=== PATIENT | male | born 1940 | race Caucasian/White ===

== ENCOUNTER 2024-05-10 06:26 | Outpatient (CLI) | payer MEDICARE | END 2024-05-10 23:59 | disposition home or self-care (01) | LOC: MRI02 06:26 | PROVIDERS: ATTEND Nurse Practitioner Family | DX: I67.82 Cerebral ischemia (principal); G31.89 Other specified degenerative diseases of nervous system; G93.89 Other specified disorders of brain; J32.2 Chronic ethmoidal sinusitis; Z86.73 Personal history of transient ischemic attack (TIA), and cerebral infarction without residual deficits | CPT/HCPCS: 70551 ==

== ENCOUNTER 2024-06-22 10:55 | Day surgery (SDC) | payer MEDICARE ==
[2024-06-22] VITALS (9 sets, daily range): BP systolic 132–168; BP diastolic 81–118; PULSE 79–93; RESP 12–20; TEMP 97.3; O2SAT 95–99
[~2024-06-22] VITALS: Ht 175.3 cm; Wt 93.0 kg
[2024-06-22] MEDS: ceFAZolin 2gm in dextrose, iso 50 ML IV ONE (10:33)
[~2024-06-22 10:55] MED LIST: NO HOME MEDS; famotidine 20mg tablet PO ONE; ringers solution, lacted 1,000 ML IV SCH
[2024-06-22] MEDS ORDERED: BUPIVAcaine 2.5mg/ml inj 50ml vial (contains preservative) ONE (12:51)
[2024-06-22] MEDS ORDERED: sevoflurane 250ml liquid IH ONE (13:02)
[2024-06-22] MEDS ORDERED: midazolam 1 mg/ML 2ml injection ONE (13:08)
[2024-06-22] MEDS ORDERED: fentaNYL/PF 50MCG/1 ML 2ML syringe ONE (13:08)
[2024-06-22] MEDS ORDERED: propofol inj 20 ML IV ONE (13:09)
[2024-06-22] MEDS ORDERED: vancomycin 1,000mg inj ONE (13:21)
[2024-06-22] MEDS ORDERED: morphine 2 MG/ML inj. syringe IV PRN (13:40)
[2024-06-22] MEDS ORDERED: ringers solution, lacted 1,000 ML IV SCH (13:40)
[2024-06-22] MEDS ORDERED: meperidine/PF 25mg/ml syringe IV PRN ×3 (13:40)
[2024-06-22] MEDS ORDERED: morphine 4 MG/ML inj SYRINge IV PRN (13:40)
[2024-06-22] MEDS ORDERED: ondansetron/PF 4mg/2ml inj IV PRN (13:40)
[2024-06-22] MEDS ORDERED: proCHLORperazine 10 MG/2 ml inj IV PRN (13:40)
[2024-06-22] MEDS: BUPIVAcaine/PF 2.5 mg/ml (0.25%) 30ml vial IJ ONE (13:44)
== END 2024-06-22 14:55 | disposition home or self-care (01) ==
LOC: PAS 10:55
PROVIDERS: ATTEND Orthopaedic Surgery Orthopaedic Trauma
DX: M86.8X7 Other osteomyelitis, ankle and foot (principal); M19.90 Unspecified osteoarthritis, unspecified site; E11.9 Type 2 diabetes mellitus without complications; I48.20 Chronic atrial fibrillation, unspecified; M10.9 Gout, unspecified; F10.90 Alcohol use, unspecified, uncomplicated; F17.210 Nicotine dependence, cigarettes, uncomplicated; E66.9 Obesity, unspecified; Z68.31 Body mass index [BMI] 31.0-31.9, adult; Z86.73 Personal history of transient ischemic attack (TIA), and cerebral infarction without residual deficits; Z96.642 Presence of left artificial hip joint; Z98.890 Other specified postprocedural states; Z79.899 Other long term (current) drug therapy; Z88.8 Allergy status to other drugs, medicaments and biological substances
CPT/HCPCS: 28820; 82948; 87070; 87075; 87077; 87186; A4618; A6222; A6402; A6446; A6449; A7000; J0690; J2250; J2704; J3010; J3370; J3490; J7030; J7120; Z7506; Z7512; Z7610